=== PATIENT | female | born 1995 | race Two or more races ===

== ENCOUNTER 2023-06-05 21:27 | Emergency (ER) | payer OTHER ==
[~2023-06-05] VITALS: Ht 149.9 cm; Wt 11.3 kg
[2023-06-05 22:11] VITALS: BP 134/82; PULSE 74; RESP 18; TEMP 98.4; O2SAT 98
[2023-06-05] MEDS ORDERED: TETANUS-DIPTH-ACEL PERTUSSIS 0.5ML SYR Tdap IM ONE (23:45)
[2023-06-05] MEDS ORDERED: NEOMYCIN-BACITRACIN-POLYM UNITDOSE PKG TOP OINT TOP ONE (23:45)
[2023-06-05] MEDS ORDERED: DOXY150C4 PO (23:49)
[2023-06-05] MEDS ORDERED: MUPI2OIN2 EX (23:49)
== END 2023-06-06 00:31 | disposition home or self-care (01) ==
LOC: ER 21:27
DX: S71.031A Puncture wound without foreign body, right hip, initial encounter (principal); X58.XXXA Exposure to other specified factors, initial encounter; Y93.89 Activity, other specified; Y92.89 Other specified places as the place of occurrence of the external cause; Y99.8 Other external cause status
CPT/HCPCS: 90471; 90715